=== PATIENT | male | born 1945 | race Caucasian/White ===

== ENCOUNTER → 2016-12-01 | Outpatient (CLI) | payer OTHER ==
[~2016-12-01] MED LIST: ZOLM5TAB10 PO
== END | disposition home or self-care (01) ==
LOC: STAR 08:16
PROVIDERS: ATTEND Urology
DX: Z01.818 Encounter for other preprocedural examination (principal); N20.1 Calculus of ureter
CPT/HCPCS: 81001; 87086; 93005

== ENCOUNTER 2016-12-08 05:49 | Day surgery (SDC) | payer OTHER ==
[2016-12-02 07:59] VITALS: BP 154/91
[~2016-12-08] VITALS: Ht 193 cm; Wt 87.0 kg
[2016-12-08] MEDS ORDERED: LACTATED RINGERS 1,000 ML IV SCH (06:09)
[2016-12-08] MEDS ORDERED: FENTANYL PF 250 MCG/5ML ONE (07:10)
[2016-12-08] MEDS ORDERED: MIDAZOLAM 1 MG/ML, 2ML ONE (07:10)
[2016-12-08] MEDS ORDERED: OXYcodone 5 MG/5 ML ORAL.SOL UDC PO PRN (08:00)
[2016-12-08] MEDS ORDERED: FENTANYL PF 100 MCG/2ML IV PRN (08:00)
[2016-12-08] MEDS ORDERED: MIDAZOLAM 1 MG/ML, 2ML IV PRN (08:00)
[2016-12-08] MEDS ORDERED: HYDROmorphone 1 MG/ML, 1ML IV PRN (08:00)
[2016-12-08] MEDS ORDERED: ACETAMINOPHEN 325 MG TABLET PO PRN (08:00)
[2016-12-08] MEDS ORDERED: ONDANSETRON 2MG/ML, 2ML IVPush PRN (08:00)
[2016-12-08] MEDS ORDERED: OXYcodone/APAP 5/325MG TABLET PO PRN (09:00)
[2016-12-08] MEDS ORDERED: ONDANSETRON 2MG/ML, 2ML ONE (11:03)
[2016-12-08] MEDS ORDERED: PROPOFOL 10 MG/ML, 20ML ONE (11:03)
[2016-12-08] MEDS ORDERED: SUCCINYLCHOLINE 20 MG/ML, 10ML ONE (11:03)
[2016-12-08] MEDS ORDERED: DEXAMETHASONE 4 MG/ML, 1ML ONE (11:03)
== END 2016-12-08 11:50 | disposition home or self-care (01) ==
LOC: OUT 05:49
PROVIDERS: ATTEND Urology
DX: N20.1 Calculus of ureter (principal); Z91.012 Allergy to eggs; Z90.49 Acquired absence of other specified parts of digestive tract
CPT/HCPCS: 50590; 74420; J0330; J1100; J2250; J2405; J2704; J3010; J7120; 74000